=== PATIENT | female | born 1995 | race Caucasian/White ===

== ENCOUNTER 2020-09-29 18:23 | Emergency (ER) | payer OTHER ==
[~2020-09-29] VITALS: Ht 154.9 cm; Wt 48.5 kg
[~2020-09-29 18:23] MED LIST: PANADOL EXTRA500 MG PO
[2020-09-29] MEDS ORDERED: ANALPRAM HC 2.530 GM RECTAL (21:23)
== END 2020-09-29 21:47 | disposition home or self-care (01) ==
LOC: ER 18:23
DX: K64.4 Residual hemorrhoidal skin tags (principal)

== ENCOUNTER 2023-05-22 12:43 | Emergency (ER) | payer OTHER ==
[~2023-05-22] VITALS: Ht 154.9 cm; Wt 45.4 kg
[~2023-05-22 12:43] MED LIST changes: +ANALPRAM HC 2.530 GM RECTAL
[2023-05-22] MEDS ORDERED: MEPERIDINE HCL/PF 25 MG/ML VIAL IM STA (14:10)
[2023-05-22 14:34] LABS: MEAN CORPUSCULAR HGB CONC 30.8 g/dl (32.0-36.0); PLATELET COUNT 296 K/uL (150-450); RED BLOOD COUNT 5.18 M/uL (4.00-6.00)
[2023-05-22 14:35] LABS: HEMOGLOBIN 10.2 g/dL (12.0-15.00); MEAN CELL VOLUME 63.8 fL (80.00-100.00); MEAN CORPUSCULAR HEMOGLOBIN 19.6 pg (27.00-32.0); RED CELL DISTRIBUTION WIDTH 18.4 % (11.5-14.5)
[2023-05-22] MEDS ORDERED: PROMETHAZINE HCL 25 MG/ML AMPUL IM ONE (14:45)
[2023-05-22 15:01] LABS: PH,URINE 7.5 (5.0-8.0); URINE APPEARANCE Cloudy; URINE BILIRRUBIN Negative (NEGATIVE); URINE BLOOD Negative; URINE COLOR Yellow; URINE GLUCOSE Negative (NEGATIVE); URINE LEUKOCYTE Large; URINE NITRATE Negative; URINE PROTEIN Negative (NEGATIVE); URINE UROBILINOGEN 0.2 E.U./dl
[2023-05-22 15:03] LABS: CALCIUM 8.7 mg/dL (8.5-10.1); CREATININE SERUM 0.65 mg/dL (0.55-1.02); GFR 110.18; POTASSIUM 3.9 mEq/L (3.5-5.1)
[2023-05-22 15:04] LABS: URINE BACTERIA 1358.2 uL (0.0-1933); URINE EPITHELIAL CELLS 16.8 uL (0.0-38.8); URINE RBC 55.7 uL (0.0-20.8); URINE WBC 531.8 uL (0.0-23.2)
[2023-05-22 15:28] LABS: URINE MUCUS MODERATE
[2023-05-22] MEDS ORDERED: DIPHENOXYLATE HCL/ATROPINE 1 UDTAB TABLET PO ONE (18:15)
== END 2023-05-22 18:26 | disposition home or self-care (01) ==
LOC: ER 12:43
PROVIDERS: General Practice
DX: R19.7 Diarrhea, unspecified (principal); K61.1 Rectal abscess; Z88.6 Allergy status to analgesic agent

== ENCOUNTER 2023-06-03 12:48 | Outpatient (CLI) | payer OTHER | END 2023-06-03 13:01 | disposition home or self-care (01) | LOC: MRI 12:48 | PROVIDERS: ATTEND Internal Medicine | DX: K50.90 Crohn's disease, unspecified, without complications (principal); K60.3 Anal fistula | CPT/HCPCS: 72196 ==